=== PATIENT | female | born 1995 | race Caucasian/White ===

== ENCOUNTER 2017-09-06 23:11 | Emergency (ER) | payer OTHER ==
[2017-09-06 23:25] VITALS: BP 133/94; TEMP 98.6; BMI 25.2
--- NOTE | 2017-09-06 23:38 | ED.PDOC ---
General ED Provider: Dr. JAIRO BRAVO Chief Complaint: Hypertension Stated Complaint: Came for the chest pain, elevated BP. she is been short of breath, was taking BC pills. Time Seen by Physician: 23:36 Mode of Arrival: Walk-In Information Source: Patient Primary Care Provider: KAYY BRAGA Nursing and Triage Documentation Reviewed and Agree: Yes Does patient meet sepsis criteria?: No If yes, has appropriate treatment been initiated?: No System Inflammatory Response Syndrome: Not Applicable Sepsis Protocol: For patient's 13 years and over: Temp is 96.8 and below OR 101 and greater Pulse >90 BPM Resp >20/minute Acutely Altered Mental Status Are patient's symptoms suggestive of a new infection, such as: -Pneumonia -Skin, Soft Tissue -Endocarditis -UTI -Bone, Joint Infection -Implantable Device -Acute Abdominal Infection -Wound Infection -Meningitis -Blood Stream Catheter Infection -Unknown Cardiovascular Complaint Exam - Hypertension Complaint/Exam Symptoms Are: Still present Timing: Constant Aggravating: Reports: None Alleviating: Reports: None Associated Signs and Symptoms: Reports: Chest pain, Anxiety, Numbness, Tingling. Denies: Vision changes, Recent stress, Headache, Weakness, Dizziness , Short of air, Swelling Related Surgical History: Reports: None Cardiac Risk Factors: Reports: None Recent Change in Medications: No A/V [place]: No Papilledema Present: No JVD Present: No Carotid Bruit Present: No Femoral Pulses Bounding: No Differential Diagnoses: Hypertension Review of Systems - Review Of Systems Constitutional: Reports: No symptoms Eyes: Reports: No symptoms Ears, Nose, Mouth, Throat: Reports: No symptoms Respiratory: Reports: No symptoms Cardiac: Reports: No symptoms GI: Reports: No symptoms : Reports: No symptoms Musculoskeletal: Reports: No symptoms Skin: Reports: No symptoms Neurological: Reports: No symptoms Endocrine: Reports: No symptoms Hematologic/Lymphatic: Reports: No symptoms All Other Systems: Reviewed and Negative Past Medical History - Past Medical History Previously Healthy: Yes Endocrine: Reports: None Cardiovascular: Reports: None Respiratory: Reports: None Hematological: Reports: None Gastrointestinal: Reports: None Genitourinary: Reports: None Neuro/Psych: Reports: None Musculoskeletal: Reports: None Cancer: Reports: None Last Menstrual Period: 08/11/17 - Surgical History General Surgical History: Reports: None - Family History Family History: Reports: None - Social History Smoking Status: Current every day smoker, Light tobacco smoker Smoking Cessation Counseling Time: > 3 min - 10 min Hx Substance Use: No Alcohol Screening: None - Immunizations Tetanus Shot up to Date: Yes Physical Exam - Physical Exam Appearance: Well-appearing, No pain distress, Well-nourished Eyes: PRAVEEN, EOMI, Conjunctiva clear ENT: Ears normal, Nose normal, Oropharynx normal Respiratory: Airway patent, Breath sounds clear, Breath sounds equal, Respirations nonlabored Cardiovascular: RRR, Pulses normal, No rub, No murmur GI/: Soft, Nontender, No masses, Bowel sounds normal, No Organomegaly Musculoskeletal: Normal strength, ROM intact, No edema, No calf tenderness Skin: Warm, Dry, Normal color Neurological: Sensation intact, Motor intact, Reflexes intact, Cranial nerves intact, Alert, Oriented Psychiatric: Affect appropriate, Mood appropriate Critical Care Note - Critical Care Note Total Time (mins): 30 Course - Course Hematology/Chemistry: 09/06/17 23:32 09/06/17 23:32 Orders, Labs, Meds: Lab Review 09/06/17 09/06/17 09/06/17 23:32 23:32 23:32 WBC 8.41 RBC 4.10 L Hgb 11.4 L Hct 34.4 L MCV 83.9 MCH 27.8 MCHC 33.1 RDW Coeff of Vaishali 13.9 Plt Count 220 Immature Gran % (Auto) 0.2 Neut % (Auto) 53.9 Lymph % (Auto) 36.5 [place] % (Auto) 6.1 Eos % (Auto) 2.7 Baso % (Auto) 0.6 Immature Gran # (Auto) 0.0 Neut # (Auto) 4.5 Lymph # (Auto) 3.1 [place] # (Auto) 0.5 Eos # (Auto) 0.2 Baso # (Auto) 0.1 D-Dimer (Manual) 247.85 Sodium 140 Potassium 3.9 Chloride 110 H Carbon Dioxide 23 Anion Gap 10.9 BUN 10 Creatinine 0.82 Estimated GFR (MDRD) 86.00 BUN/Creatinine Ratio 12.19 Glucose 97 Calcium 8.8 Total Bilirubin 0.3 AST 13 L ALT 10 L Alkaline Phosphatase 52 Total Creatine Kinase 83 Troponin I < 0.0100 Total Protein 6.7 Albumin 3.5 Globulin 3.2 Albumin/Globulin Ratio 1.09 Urine Color Urine Clarity Urine pH Ur Specific [place] Urine Protein Urine Glucose (UA) Urine Ketones Urine Blood Urine Nitrite Urine Bilirubin Urine Urobilinogen Ur Leukocyte Esterase Urine Test Urine Opiates Screen Ur Oxycodone Screen Urine Methadone Screen Ur Propoxyphene Screen Ur Barbiturates Screen U Tricyclic Antidepress Ur Phencyclidine Scrn Ur Amphetamine Screen U Methamphetamines Scrn U Benzodiazepines Scrn Urine Cocaine Screen U Cannabinoids Screen 09/06/17 09/06/17 09/06/17 23:58 23:58 23:58 WBC RBC Hgb Hct MCV MCH MCHC RDW Coeff of Vaishali Plt Count Immature Gran % (Auto) Neut % (Auto) Lymph % (Auto) [place] % (Auto) Eos % (Auto) Baso % (Auto) Immature Gran # (Auto) Neut # (Auto) Lymph # (Auto) [place] # (Auto) Eos # (Auto) Baso # (Auto) D-Dimer (Manual) Sodium Potassium Chloride Carbon Dioxide Anion Gap BUN Creatinine Estimated GFR (MDRD) BUN/Creatinine Ratio Glucose Calcium Total Bilirubin AST ALT Alkaline Phosphatase Total Creatine Kinase Troponin I Total Protein Albumin Globulin Albumin/Globulin Ratio Urine Color Yellow Urine Clarity Clear Urine pH 7.0 Ur Specific [place] >=1.030 Urine Protein Negative Urine Glucose (UA) Negative Urine Ketones Trace Urine Blood Negative Urine Nitrite Negative Urine Bilirubin Negative Urine Urobilinogen 1.0 Ur Leukocyte Esterase Negative Urine Test Negative Urine Opiates Screen Negative Ur Oxycodone Screen Negative Urine Methadone Screen Negative Ur Propoxyphene Screen Negative Ur Barbiturates Screen Negative U Tricyclic Antidepress Negative Ur Phencyclidine Scrn Negative Ur Amphetamine Screen Negative U Methamphetamines Scrn Negative U Benzodiazepines Scrn Negative Urine Cocaine Screen Negative U Cannabinoids Screen Positive Orders Category Date Time Status EKG-(ED ONLY) Stat CARDIO 09/06/17 23:35 Ordered CBC W/ AUTO DIFF Stat LAB 09/06/17 23:32 Completed COMPREHENSIVE METABOLIC PANEL Stat LAB 09/06/17 23:32 Completed CREATINE KINASE Stat LAB 09/06/17 23:32 Completed D-DIMER Stat LAB 09/06/17 23:32 Completed TROPONIN I Stat LAB 09/06/17 23:32 Completed URINALYSIS C & S IF INDICATED Stat LAB 09/06/17 23:58 Completed URINE DRUG SCREEN (RAPID FOR ED) [DRUG SCREEN, URINE, LAB 09/06/17 23:58 Completed RAPID] Stat URINE Stat LAB 09/06/17 23:58 Completed Vital Signs: Temp Pulse Resp BP Pulse Ox 09/06/17 23:12 98.6 F 80 20 133/94 H 98 SUMMER Risk Score SUMMER Risk Score: Risk Score Odds of by 30D 0 0.1 (0.1-0.2) 1 0.3 (0.2-0.3) 2 0.4 (0.3-0.5) 3 0.7 (0.6-0.9) 4 1.2 (1.0-1.5) 5 2.2 (1.9-2.6) 6 3.0 (2.5-3.6) 7 4.8 (3.8-6.1) Departure - Departure Time of Disposition: 23:40 Disposition: HOME SELF-CARE Discharge Problem: Hypertension Qualifiers: Hypertension type: essential hypertension Qualified Code(s): I10 - Essential ( primary) hypertension Instructions: Hypertension (ED) Condition: Stable Pt referred to PMD for follow-up: Yes IPMP verified?: No Additional Instructions: stop BC pill Keep checking the BP F/u RHC in 3-4 days Allergies/Adverse Reactions: Allergies Penicillins Adverse Reaction (Verified 09/06/17 23:30) Home Medications: Ambulatory Orders Levonorgestrel-Ethin Estradiol [Lessina-28 Tablet] 1 tab PO DAILY 09/06/17 Disposition Discussed With: Patient
== END 2017-09-07 00:50 | disposition home or self-care (01) ==
LOC: ED 23:11
DX: I10 Essential (primary) hypertension (principal); R07.9 Chest pain, unspecified; R06.02 Shortness of breath; F17.210 Nicotine dependence, cigarettes, uncomplicated
CPT/HCPCS: 36415; 80053; 80306; 81001; 81025; 82550; 84484; 85025; 85379; 93005; 93010; 99283

== ENCOUNTER 2017-09-18 15:14 | Emergency (ER) ==
[2017-09-18 15:15] VITALS: BMI 25.2
[2017-09-18 15:31] VITALS: BP 135/89; TEMP 99
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
[2017-09-18] MEDS ORDERED: TORADOL PO STA (16:28)
--- NOTE | 2017-09-18 16:59 | CT ---
Exam: CT of the cervical spine without intravenous contrast. Comparison: None available. Reason for exam: Trauma. FINDINGS: No acute fracture or listhesis. The vertebral body heights appear well maintained. The pr evertebral soft tissues are within normal limits. The dens appears intact. There is straightening o f the cervical lordotic curve. Impression: 1. No acute fracture or listhesis in the cervical spine. 2. Straightening of the cervical lordotic curve may be secondary to splinting.
--- NOTE | 2017-09-18 17:02 | CT ---
Exam: CT thoracic spine without intravenous contrast. Comparison: None available. Reason for exam: Trauma. FINDINGS: No acute fracture or listhesis. The vertebral body and intervertebral body disc space hei ghts are well maintained. There is straightening of the thoracic kyphotic curve with mild dextroscol iosis in the thoracic spine. No pleural effusion, or focal consolidation in the partially imaged dane g bases. Impression: 1. No acute fracture or listhesis in the thoracic spine. 2. Mild degenerative disease with dextroscoliosis.
== END 2017-09-18 18:28 | disposition home or self-care (01) ==
LOC: ED 15:14
DX: R07.89 Other chest pain (principal); F41.9 Anxiety disorder, unspecified; S29.012A Strain of muscle and tendon of back wall of thorax, initial encounter; W19.XXXA Unspecified fall, initial encounter
CPT/HCPCS: 36415; 80053; 82550; 84484; 84703; 85025; 93005; 93010; 96372; 99283

== ENCOUNTER 2017-10-07 12:11 | Emergency (ER) ==
[2017-10-07 12:14] VITALS: BP 143/88; TEMP 97.9; BMI 23.6
--- NOTE | 2017-10-07 12:42 | ED.PDOC ---
General ED Provider: Dr. GILMER HARRIS Chief Complaint: Respiratory Complaint Stated Complaint: chronic cough Time Seen by Physician: 12:11 (cough since august ) Mode of Arrival: Walk-In Information Source: Patient Exam Limitations: No limitations [facility] T[facility] Documentation Reviewed and Agree: Yes (seen with libb RN AT ALL TIMES ) Does patient meet sepsis criteria?: No System Inflammatory Response Syndrome: Not Applicable Sepsis Protocol: For patient's 13 years and over: Temp is 96.8 and below OR 101 and greater Pulse >90 BPM Resp >20/minute Acutely Altered Mental Status Are patient's symptoms suggestive of a new infection, such as: -Pneumonia -Skin, Soft Tissue -Endocarditis -UTI -Bone, Joint Infection -Implantable Device -Acute Abdominal Infection -Wound Infection -Meningitis -Blood Stream Catheter Infection -Unknown Review of Systems - Review Of Systems Constitutional: Reports: No symptoms Eyes: Reports: No symptoms Ears, Nose, Mouth, Throat: Reports: No symptoms Respiratory: Reports: Cough Cardiac: Reports: No symptoms GI: Reports: No symptoms : Reports: No symptoms Musculoskeletal: Reports: No symptoms Skin: Reports: No symptoms Neurological: Reports: No symptoms Endocrine: Reports: No symptoms Hematologic/Lymphatic: Reports: No symptoms All Other Systems: Reviewed and Negative Past Medical History - Past Medical History Previously Healthy: Yes Endocrine: Reports: None Cardiovascular: Reports: None Respiratory: Reports: None Hematological: Reports: None Gastrointestinal: Reports: None Genitourinary: Reports: None Neuro/Psych: Reports: None Musculoskeletal: Reports: None Cancer: Reports: None Last Menstrual Period: 10/07/17 - Surgical History General Surgical History: Reports: None - Family History Family History: Reports: None - Social History Smoking Status: Current every day smoker, Light tobacco smoker Hx Substance Use: No Alcohol Screening: None - Immunizations Tetanus Shot up to Date: Yes Physical Exam - Physical Exam Appearance: Well-appearing, No pain distress, Well-nourished Eyes: PRAVEEN, EOMI, Conjunctiva clear ENT: Ears normal, Nose normal, Oropharynx normal Respiratory: Airway patent, Breath sounds clear, Breath sounds equal, Respirations nonlabored Cardiovascular: RRR, Pulses normal, No rub, No murmur GI/: Soft, Nontender, No masses, Bowel sounds normal, No Organomegaly Musculoskeletal: Normal strength, ROM intact, No edema, No calf tenderness Skin: Warm, Dry, Normal color Neurological: Sensation intact, Motor intact, Reflexes intact, Cranial nerves intact, Alert, Oriented Psychiatric: Affect appropriate, Mood appropriate Critical Care Note - Critical Care Note Total Time (mins): 0 Course - Course Orders, Labs, Meds: Orders Category Date Time Status URINE Stat LAB 10/07/17 12:[address] CHEST W/O CONTRAST Stat RADS 10/07/17 12:28 Ordered Vital Signs: Temp Pulse Resp BP Pulse Ox 10/07/17 12:11 97.9 F 50 L 16 143/88 H 100 Departure - Departure Time of Disposition: 14:00 Disposition: HOME SELF-CARE Discharge Problem: Cough Instructions: Chronic Cough (ED), How to Stop Smoking (ED), Secondhand Smoke Exposure in Children (ED) Condition: Good Pt referred to PMD for follow-up: Yes IPMP verified?: No Additional Instructions: Please call your Family Physician as soon as possible to schedule a follow-up appointment. Allergies/Adverse Reactions: Allergies Penicillins Adverse Reaction (Verified 10/07/17 12:14) Home Medications: Ambulatory Orders 1 [No Reported Medications] 10/07/17 Disposition Discussed With: Patient
--- NOTE | 2017-10-07 13:46 | CT ---
EXAM: CT chest without contrast HISTORY: Cough COMPARISON: None TECHNIQUE: CT chest performed without intravenous contrast. Coronal and sagittal reformatted images obtained. FINDINGS: Thyroid and thoracic inlet appear normal. Heart normal in size. No pericardial effusion. Aorta normal in caliber. Normal residual thymic tissue present. Esophagus appears normal. Soft s o unremarkable. Evaluation for lymphadenopathy limited without contrast. No lymphadenopathy identif ied. Visualized portion upper abdomen demonstrates no acute abnormality. No acute abnormalities of the bones. Mild rightward curvature thoracic spine. Central airway patent. Lungs are clear. No pl eural effusion or pneumothorax. IMPRESSION: No acute cardiopulmonary process.
== END 2017-10-07 13:55 | disposition home or self-care (01) ==
LOC: ED 12:11
DX: R05 Cough (principal); F17.210 Nicotine dependence, cigarettes, uncomplicated
CPT/HCPCS: 81025; 99283